=== PATIENT | female | born 1955 | race African-American/Black ===

== ENCOUNTER 2022-06-24 07:25 | Emergency (ER) | payer MEDICARE, MEDICAID ==
[~2022-06-24] VITALS: Ht 172.7 cm; Wt 63.0 kg
[~2022-06-24 07:25] MED LIST: ALBU18HF2 IH; GUAI600T26 MT; TUSSL MT
[2022-06-24] MEDS ORDERED: SODIUM CHLORIDE 0.9% 1,000 ML IV ONE (07:30)
[2022-06-24 07:32] VITALS: BP 152/84
[2022-06-24 08:41] LABS: HEMATOCRIT. 39.5 % (36.0-48.0); HEMOGLOBIN. 13.3 g/dL (12.0-16.0); MEAN CORPUSCULAR HEMOGLOBIN 31.9 pg (28.0-32.0); MEAN CORPUSCULAR VOLUME 94.8 fL (81.0-99.0); RED BLOOD CELL COUNT 4.17 mill/uL (4.2-5.4)
[2022-06-24 08:44] LABS: CHLORIDE 108 mEq/L (98-107)
[2022-06-24] MEDS ORDERED: ACETAMINOPHEN 325MG TABLET PO NR (09:45)
[2022-06-24] MEDS ORDERED: BO1 TP (14:03)
[2022-06-24] MEDS ORDERED: TETANUS, DIPHTHERIA, PERTUSSIS VAC/PF 0.5ML (>10YR OLD) IM ONE (14:30)
== END 2022-06-24 14:53 | disposition home or self-care (01) ==
LOC: ER 07:25
DX: R07.89 Other chest pain (principal); R51.9 Headache, unspecified; E11.9 Type 2 diabetes mellitus without complications; Z88.0 Allergy status to penicillin; Z86.73 Personal history of transient ischemic attack (TIA), and cerebral infarction without residual deficits; Z98.890 Other specified postprocedural states; V49.9XXA Car occupant (driver) (passenger) injured in unspecified traffic accident, initial encounter; Y93.89 Activity, other specified; Y92.89 Other specified places as the place of occurrence of the external cause; Y99.8 Other external cause status
CPT/HCPCS: 36415; 70450; 71045; 71250; 72125; 80053; 83690; 84484; 85025; 90471; 90715; 93005; 99285; J7030